=== PATIENT | female | born 1970 | race Caucasian/White ===

== ENCOUNTER 2018-09-21 21:26 | Emergency (ER) | payer MEDICAID ==
[~2018-09-21] VITALS: Wt 65.6 kg
[2018-09-22] MEDS ORDERED: DEXAMETHASONE 10 MG/ML 1 ML INJ IM ONE
[2018-09-22] MEDS ORDERED: LIDO20SO19 MM (00:55)
[2018-09-22 01:06] VITALS: BP 136/70; PULSE 58; RESP 16
--- NOTE | 2018-09-22 01:44 | ERD ---
ER Documentation Chief Complaint Chief Complaint sore throat x 1 week HPI History of Present Illness: 48-year-old female with no past medical history coming in today with complaint of sore to the top of her mouth palate. Patient reports having a sore throat like symptoms approximately 1 week ago but are no longer present. Associated symptoms include nasal congestion, unable to breathe from nose. Patient denies any other associated symptoms At home pharmacological/nonpharmacological treatment for symptoms: Denies Denies social concerns; Denies recent foreign travel ROS All systems reviewed and are negative except as per history of present illness. Medications Home Meds Active Scripts Lidocaine (Lidocaine Viscous) 100 Ml Soln, 5 ML MM BID PRN for PAIN, #100 ML Do not swallow solution. Swish and spit out after 5 to 10 seconds. Prov:TANYA PARK NP 09/22/18 Allergies Allergies: Coded Allergies: No Known Drug Allergies (Verified Allergy, Unknown, 09/21/18) PMhx/Soc Medical and Surgical Hx: pt denies Medical Hx, pt denies Surgical Hx Hx Alcohol Use: No Hx Substance Use: No Hx Tobacco Use: No Smoking Status: Never smoker Physical Exam Vitals Vital Signs Date Temp Pulse Resp B/P (MAP) Pulse Ox O2 O2 Flow FiO2 Time Delivery Rate 09/22/18 97.4 58 16 136/70 98 Room Air 01:06 (92) 09/21/18 97.6 93 18 142/68 98 21:50 (92) Physical Exam Const: No acute distress Head: Atraumatic Eyes: Normal Conjunctiva ENT: Normal External Ears. Nasal turbinates swollen. oropharynx clear without tonsillar exudate. Palpable lesion noted to hard palate, no erythema, no warmth, no purulent discharge, no color changes Neck: Full range of motion. No meningismus. Resp: Clear to auscultation bilaterally Cardio: Regular rate and rhythm, no murmurs Abd: Soft, non tender, non distended. Normal bowel sounds Skin: No petechiae or rashes Back: No midline or flank tenderness Ext: No cyanosis, or edema Neur: Awake and alert Psych: Normal Mood and Affect Results 24 hrs Current Medications Medications Dose Sig/Francisco Start Time Status Last (Trade) Ordered Route PRN Stop Time Admin Dose Reason Admin 10 mg ONCE ONCE 09/22/18 DC 09/22/18 Dexamethasone IM 00:00 09/22/18 00:02 (Decadron) 00:01 Procedures/MDM ED course includes a thorough examination and history. Medications: Dexamethasone Imaging: Labs: Low suspicion for life-threatening medical emergency. Low suspicion for HEENT medical emergency that requires hospitalization or immediate surgical intervention. Low suspicion for infectious process or cancerous process to the mouth. Otherwise healthy patient presenting with constellation of symptoms likely representing uncomplicated allergic rhinitis/mild sore as characterized by history, physical exam findings.. Patient reassessment: :No respiratory distress, otherwise relatively well appearing and nontoxic. Questions answered. Disposition given. Patient educated on diagnoses, prescriptions, follow-up care, return precautions. Strict return precautions given for worsening condition; questions answered discharge. Disposition for discharge with followup in 2 days with PCP/clinic. Departure Diagnosis: Primary Impression: Mouth sore Condition: Stable Patient Instructions: When Your Child Has Mouth Sores Referrals: [facility] YOU HAVE RECEIVED A MEDICAL SCREENING EXAM AND THE RESULTS INDICATE THAT YOU DO NOT HAVE A CONDITION THAT REQUIRES URGENT TREATMENT IN THE EMERGENCY DEPARTMENT. FURTHER EVALUATION AND TREATMENT OF YOUR CONDITION CAN WAIT UNTIL YOU ARE SEEN IN YOUR DOCTORS OFFICE WITHIN THE NEXT 1-2 DAYS. IT IS YOUR RESPONSIBILITY TO MAKE AN APPOINTMENT FOR FOLOW-UP CARE. IF YOU HAVE A PRIMARY DOCTOR --you should call your primary doctor and schedule an appointment IF YOU DO NOT HAVE A PRIMARY DOCTOR YOU CAN CALL OUR PHYSICIAN REFERRAL HOTLINE AT IF YOU CAN NOT AFFORD TO SEE A PHYSICIAN YOU CAN CHOSE FROM THE FOLLOWING [facility] [address] [facility]. [facility] [address] [facility]. [facility] [address] [facility]. [facility] [address] [facility]. [facility] [address] [facility]. [facility]. [address] [facility]. [facility] YOU HAVE RECEIVED A MEDICAL SCREENING EXAM AND THE RESULTS INDICATE THAT YOU DO NOT HAVE A CONDITION THAT REQUIRES URGENT TREATMENT IN THE EMERGENCY DEPARTMENT. FURTHER EVALUATION AND TREATMENT OF YOUR CONDITION CAN WAIT UNTIL YOU ARE SEEN IN YOUR DOCTORS OFFICE WITHIN THE NEXT 1-2 DAYS. IT IS YOUR RESPONSIBILITY TO MAKE AN APPOINTMENT FOR FOLOW-UP CARE. IF YOU HAVE A PRIMARY DOCTOR --you should call your primary doctor and schedule and appointment IF YOU DO NOT HAVE A PRIMARY DOCTOR YOU CAN CALL OUR PHYSICIAN REFERRAL HOTLINE AT . IF YOU CAN NOT AFFORD TO SEE A PHYSICIAN YOU CAN CHOSE FROM THE FOLLOWING [facility] INSTITUT[facility]: [facility] [address] [place] [address] [facility] [address] [place] [address] [facility] [address] [place] [address] Additional Instructions: Muchas manuela por permitirnos participar en mendes cuidado. Mendes kadie y seguridad es nuestra principal prioridad en [facility]. Es importante leer todas las instrucciones de mono y la educacin que se proporcionan en mendes paquete de mono. Llame a mendes mdico de atencin primaria MAANA para shaji rancho marlene los prximos 2 a 4 devlin y lleve toda la informacin y los medicamentos recetados. Llene las recetas y siga exactamente las instrucciones de la etiqueta. Si los sntomas empeoran y mendes proveedor no est disponible, regrese inmediatamente al Departamento de Emergencias. --- Thank you very much for allowing us to participate in your care. Your health and safety is our top priority at [facility]. It is important to read all discharge instructions and education provided in your discharge packet. Call your primary care doctor TOMORROW for an appointment during the next 2-4 days and bring all the information and medications prescribed. Have prescriptions filled and follow precisely the directions on the label. If the symptoms get worse and your provider is unavailable, return to the Emergency Department immediately. TANYA PARK NP September 22, 2018 01:44
== END 2018-09-22 01:06 | disposition home or self-care (01) ==
LOC: FTE 21:26
DX: K13.79 Other lesions of oral mucosa (principal)
CPT/HCPCS: 96372; J1100; Z7502

== ENCOUNTER 2018-10-08 08:55 | Emergency (ER) | payer MEDICAID ==
[~2018-10-08] VITALS: Ht 157.5 cm; Wt 65.0 kg
[~2018-10-08 08:55] MED LIST: LIDO20SO19 MM
[2018-10-08 09:06] VITALS: Ht 157.5 cm; Wt 65.0 kg
[2018-10-08] MEDS ORDERED: KETOROLAC 15 MG INJ IV STA (09:25)
[2018-10-08] MEDS ORDERED: IBUP-1542 PO (11:18)
[2018-10-08 12:22] VITALS: BP 158/76; PULSE 50; RESP 18
--- NOTE | 2018-10-08 13:34 | ERD ---
ER Documentation Chief Complaint Chief Complaint LLQ PAIN, NAUSEA X 15 DAYS HPI 48-year-old woman complains of 1 month left sided pelvic pain, she states the pain is been constant daily and it seems she has had multiple similar previous episodes. Patient was sent here by her PMD for pelvic ultrasound. Patient denies weight loss, no vaginal bleeding or discharge, no chest pain or shortness of breath, no dysuria. She states pain is constant nonexertional nonradiating and without obvious precipitating or alleviating factors ROS All systems reviewed and are negative except as per history of present illness. Medications Home Meds Active Scripts Ibuprofen* (Motrin*) 600 Mg Tab, 600 MG PO Q8 PRN for PAIN AND/OR INFLAMMATION, #30 TAB Prov:NUHA WARREN MD 10/08/18 Discontinued Scripts Lidocaine (Lidocaine Viscous) 100 Ml Soln, 5 ML MM BID PRN for PAIN, #100 ML Do not swallow solution. Swish and spit out after 5 to 10 seconds. Prov:TANYA PARK NP 09/22/18 Allergies Allergies: Coded Allergies: No Known Drug Allergies (Verified Allergy, Unknown, 10/08/18) PMhx/Soc Medical and Surgical Hx: pt denies Medical Hx History of Surgery: Yes (, HERNIA) Anesthesia Reaction: No Hx Neurological Disorder: No Hx Respiratory Disorders: No Hx Cardiac Disorders: No Hx Psychiatric Problems: No Hx Miscellaneous Medical Probl: No Hx Alcohol Use: No Hx Substance Use: No Hx Tobacco Use: No Smoking Status: Never smoker Physical Exam Vitals Vital Signs Date Temp Pulse Resp B/P (MAP) Pulse Ox O2 O2 Flow FiO2 Time Delivery Rate 10/08/18 98.3 50 18 158/76 98 Room Air 12:22 (103) 10/08/18 98.4 72 14 135/75 Room Air 09:10 (95) 10/08/18 98.4 62 19 131/62 96 09:06 (85) Physical Exam GENERAL: Well-developed, well-nourished, well-hydrated, in no apparent distress, looks nontoxic in appearance CARDIAC: Regular rate and rhythm, no murmurs rubs or gallops LUNGS: Clear bilaterally no wheezing crackles or stridor ABDOMEN: Soft nontender, no guarding, no rigidity, no rebound, no psoas sign no obturator sign. SKIN: Warm and dry to touch, no abrasions, contusions, or hematomas, no lacerations, no ecchymosis, no target lesions, and without ulcers EXTREMITIES: No clubbing cyanosis or edema, calves are bilaterally symmetrical, no Homans sign, no popliteal cord sign. Distal pulses equal and bilateral PSYCH: Normal affect without agitation or irritability Result Diagram: 10/08/1892610/08/18926 Results 24 hrs Laboratory Tests Test 10/08/18 09:27 White Blood Count 5.9 10^3/ul Red Blood Count 4.90 10^6/ul Hemoglobin 14.1 g/dl Hematocrit 42.5 % Mean Corpuscular Volume 86.7 fl Mean Corpuscular Hemoglobin 28.8 pg Mean Corpuscular Hemoglobin Concent 33.2 g/dl Red Cell Distribution Width 13.4 % Platelet Count 177 10^3/UL Mean Platelet Volume 11.5 fl Immature Granulocytes % 0.200 % Neutrophils % 63.1 % Lymphocytes % 22.9 % Monocytes % 7.1 % Eosinophils % 6.2 % Basophils % 0.5 % Nucleated Red Blood Cells % 0.0 /100WBC Immature Granulocytes # 0.010 10^3/ul Neutrophils # 3.7 10^3/ul Lymphocytes # 1.4 10^3/ul Monocytes # 0.4 10^3/ul Eosinophils # 0.4 10^3/ul Basophils # 0.0 10^3/ul Nucleated Red Blood Cells # 0.0 10^3/ul Urine Color YELLOW Urine Clarity CLEAR Urine pH 6.0 Urine Specific [place] 1.019 Urine Ketones NEGATIVE mg/dL Urine Nitrite NEGATIVE mg/dL Urine Bilirubin NEGATIVE mg/dL Urine Urobilinogen NEGATIVE mg/dL Urine Leukocyte Esterase NEGATIVE [place]/ul Urine Hemoglobin NEGATIVE mg/dL Urine Glucose NEGATIVE mg/dL Urine Total Protein NEGATIVE mg/dl Urine Test NEGATIVE Sodium Level 140 mmol/L Potassium Level 4.1 mmol/L Chloride Level 105 mmol/L Carbon Dioxide Level 28 mmol/L Anion Gap 7 Blood Urea Nitrogen 22 mg/dl Creatinine 0.59 mg/dl Est Glomerular Filtrat Rate mL/min > 60 mL/min Glucose Level 122 mg/dl Calcium Level 9.6 mg/dl Total Bilirubin 0.8 mg/dl Direct Bilirubin 0.00 mg/dl Indirect Bilirubin 0.8 mg/dl Aspartate Amino Transf (AST/SGOT) 23 IU/L Alanine Aminotransferase (ALT/SGPT) 24 IU/L Alkaline Phosphatase 103 IU/L Total Protein 7.3 g/dl Albumin 4.4 g/dl Globulin 2.90 g/dl Albumin/Globulin Ratio 1.51 Lipase 83 U/L Current Medications Medications Dose Sig/Francisco Start Time Status Last (Trade) Ordered Route PRN Stop Time Admin Dose Reason Admin Ketorolac 15 mg ONCE STAT 10/08/18 DC 10/08/18 Tromethamine IV 09:25 10:20 (Toradol) 10/08/18 09:28 Procedures/MDM IV line was established patient was placed on senior sales representative rhythm strip revealed a sinus rhythm at about 80 bpm with upright P and T waves. Patient was afebrile I administered Toradol 15 mg IV CBC and electrolytes were normal, liver function tests normal, urinalysis negative for infection, test negative. Pelvic nonobstetric ultrasound was performed and was unremarkable, please refer to radiologist dictation for full report. Patient has normal vital signs, normal examination, and no concerning points on history and physical and will be discharged to follow-up with her PMD for continued outpatient management and possible further imaging if indicated. Differential diagnoses considered, included but not limited to acute coronary syndrome, pulmonary embolism, aortic dissection, abdominal aortic aneurysm, sepsis, stroke, meningitis, encephalitis, pneumonia, appendicitis, cholecystitis, bowel obstruction, pyelonephritis, nephrolithiasis, cystitis, as well as metabolic, hematologic, and electrolyte abnormalities. As well as abscess, cellulitis, fractures, and dislocations. Patient feels much better at this time, and vital signs are normal, symptoms have improved. I did give strict instructions to return to the ED if symptoms continue or worsen, patient will otherwise follow-up with primary care physician. Patient understood instructions and agreed to plan. Disclaimer: Inadvertent spelling and grammatical errors are likely due to EHR/dictation software use and do not reflect on the overall quality of patient care. Also, please note that the electronic time recorded on this note does not necessarily reflect the actual time of the patient encounter. Departure Diagnosis: Primary Impression: Pelvic pain Ruled Out: Abdominal pain Condition: Good Patient Instructions: Pelvic Pain, Unknown Cause NUHA WARREN MD October 08, 2018 13:34
== END 2018-10-08 12:34 | disposition home or self-care (01) ==
LOC: E/R 08:55
DX: R10.2 Pelvic and perineal pain (principal)
CPT/HCPCS: 36415; 76830; 76856; 80053; 81003; 83690; 84703; 85025; 96374; J1885; Z7502

== ENCOUNTER 2019-03-18 12:04 | Emergency (ER) | payer MEDICAID ==
[~2019-03-18] VITALS: Wt 80.0 kg
[~2019-03-18 12:04] MED LIST changes: +DICL100G37 TOP; +IBUP-1542 PO; -LIDO20SO19 MM; +NAPR-985 PO
[2019-03-18 14:12] VITALS: BP 122/67; PULSE 76; RESP 18
== END 2019-03-18 14:16 | disposition home or self-care (01) ==
LOC: FTE 12:04
DX: M25.511 Pain in right shoulder (principal)
CPT/HCPCS: 73010; Z7502